=== PATIENT | female | born 1980 | race Native Hawaiian/Other Pacific Islander ===

== ENCOUNTER 2016-10-12 08:10 | Outpatient (CLI) | payer BC, OTHER | END 2016-10-12 09:10 | disposition home or self-care (01) | LOC: RESP 08:10 | DX: O24.311 Unspecified pre-existing diabetes mellitus in pregnancy, first trimester (principal) | CPT/HCPCS: 93005; 93306 ==

== ENCOUNTER 2018-11-30 08:31 | Outpatient (CLI) | payer OTHER ==
[2018-11-30 09:02] LABS: PLATELET COUNT 290 K/uL (152-353)
[2018-11-30 09:09] LABS: POTASSIUM 4.1 mmol/L (3.6-5.2)
== END 2018-11-30 21:48 | disposition home or self-care (01) ==
LOC: LABW 08:31
PROVIDERS: Internal Medicine
DX: I10 Essential (primary) hypertension (principal); E11.65 Type 2 diabetes mellitus with hyperglycemia
CPT/HCPCS: 36415; 80053; 80061; 82043; 82570; 83036; 85027

== ENCOUNTER 2019-02-28 08:12 | Outpatient (CLI) | payer OTHER ==
[2019-02-28 08:28] LABS: PLATELET COUNT 261 K/uL (152-353)
[2019-02-28 08:36] LABS: POTASSIUM 4.1 mmol/L (3.6-5.2)
== END 2019-02-28 21:50 | disposition home or self-care (01) ==
LOC: LABW 08:12
PROVIDERS: Internal Medicine
DX: I10 Essential (primary) hypertension (principal); E11.65 Type 2 diabetes mellitus with hyperglycemia
CPT/HCPCS: 36415; 80053; 80061; 82043; 82570; 83036; 85027

== ENCOUNTER 2019-08-01 09:25 | Outpatient (CLI) | payer OTHER ==
[2019-08-01 10:03] LABS: PLATELET COUNT 274 K/uL (152-353)
[2019-08-01 10:15] LABS: POTASSIUM 4.4 mmol/L (3.6-5.2)
== END 2019-08-01 22:22 | disposition home or self-care (01) ==
LOC: LABW 09:25
PROVIDERS: Dermatology
DX: R76.12 Nonspecific reaction to cell mediated immunity measurement of gamma interferon antigen response without active tuberculosis (principal); Z79.899 Other long term (current) drug therapy
CPT/HCPCS: 36415; 80053; 85027; 86480

== ENCOUNTER 2019-09-25 09:14 | Outpatient (CLI) | payer OTHER ==
[2019-09-25 09:54] LABS: PLATELET COUNT 255 K/uL (152-353)
[2019-09-25 09:58] LABS: POTASSIUM 4.3 mmol/L (3.6-5.2)
== END 2019-09-25 22:30 | disposition home or self-care (01) ==
LOC: LABW 09:14
PROVIDERS: Internal Medicine
DX: I10 Essential (primary) hypertension (principal); E11.65 Type 2 diabetes mellitus with hyperglycemia
CPT/HCPCS: 36415; 80053; 80061; 82043; 82570; 83036; 85027

== ENCOUNTER 2020-02-12 09:38 | Outpatient (CLI) | payer OTHER ==
[2020-02-12 10:26] LABS: PLATELET COUNT 262 K/uL (152-353)
== END 2020-02-12 19:11 | disposition home or self-care (01) ==
LOC: LABW 09:38
PROVIDERS: ATTEND Physician Assistant
DX: E11.9 Type 2 diabetes mellitus without complications (principal)
CPT/HCPCS: 36415; 80053; 80061; 82672; 83036; 84144; 84403; 84443; 85027

== ENCOUNTER 2020-05-02 08:55 | Outpatient (CLI) | payer OTHER ==
[2020-05-02 09:35] LABS: PLATELET COUNT 309 K/uL (152-353)
[2020-05-02 10:18] LABS: POTASSIUM 4.3 mmol/L (3.6-5.2)
== END 2020-05-02 21:48 | disposition home or self-care (01) ==
LOC: LABW 08:55
PROVIDERS: ATTEND Internal Medicine Endocrinology, Diabetes & Metabolism
DX: E11.65 Type 2 diabetes mellitus with hyperglycemia (principal)
CPT/HCPCS: 36415; 80053; 80061; 81000; 81025; 82306; 82607; 83036; 85027

== ENCOUNTER 2020-06-05 13:12 | Outpatient (CLI) | payer OTHER ==
[~2020-06-05] VITALS: Ht 175.3 cm; Wt 99.8 kg
== END 2020-06-05 22:14 | disposition home or self-care (01) ==
LOC: DIABINF 13:12
PROVIDERS: ATTEND Internal Medicine Endocrinology, Diabetes & Metabolism
DX: E11.65 Type 2 diabetes mellitus with hyperglycemia (principal); E11.40 Type 2 diabetes mellitus with diabetic neuropathy, unspecified; I10 Essential (primary) hypertension; Z71.6 Tobacco abuse counseling; F17.210 Nicotine dependence, cigarettes, uncomplicated; E55.9 Vitamin D deficiency, unspecified; R53.83 Other fatigue; F41.1 Generalized anxiety disorder; E78.49 Other hyperlipidemia; E28.2 Polycystic ovarian syndrome
CPT/HCPCS: 82948; 96365; 96366; 96521; 99204; J1718; J1815

== ENCOUNTER 2020-06-06 13:14 | Outpatient (CLI) | payer OTHER ==
[~2020-06-06] VITALS: Ht 175.2 cm; Wt 99.8 kg
== END 2020-06-06 19:27 | disposition home or self-care (01) ==
LOC: DIABINF 13:14
PROVIDERS: ATTEND Internal Medicine Endocrinology, Diabetes & Metabolism
DX: E11.65 Type 2 diabetes mellitus with hyperglycemia (principal); E11.40 Type 2 diabetes mellitus with diabetic neuropathy, unspecified; I10 Essential (primary) hypertension; Z71.6 Tobacco abuse counseling; F17.210 Nicotine dependence, cigarettes, uncomplicated; E55.9 Vitamin D deficiency, unspecified; R53.83 Other fatigue; F41.1 Generalized anxiety disorder; E78.49 Other hyperlipidemia; E28.2 Polycystic ovarian syndrome
CPT/HCPCS: 82948; 96365; 96366; 96521; 99214; J1718; J1815

== ENCOUNTER 2020-06-12 10:50 | Outpatient (CLI) | payer OTHER ==
[~2020-06-12] VITALS: Ht 175.3 cm; Wt 99.8 kg
== END 2020-06-12 19:34 | disposition home or self-care (01) ==
LOC: DIABINF 10:50
PROVIDERS: ATTEND Internal Medicine Endocrinology, Diabetes & Metabolism
DX: E11.65 Type 2 diabetes mellitus with hyperglycemia (principal); E11.40 Type 2 diabetes mellitus with diabetic neuropathy, unspecified; I10 Essential (primary) hypertension; Z71.6 Tobacco abuse counseling; E28.2 Polycystic ovarian syndrome; E55.9 Vitamin D deficiency, unspecified; R53.83 Other fatigue; E53.8 Deficiency of other specified B group vitamins; F41.1 Generalized anxiety disorder; E78.49 Other hyperlipidemia
CPT/HCPCS: 82948; 96365; 96366; 96521; 99214; J1718; J1815

== ENCOUNTER 2020-06-13 12:45 | Outpatient (CLI) | payer OTHER ==
[~2020-06-13] VITALS: Ht 175.3 cm; Wt 99.8 kg
== END 2020-06-13 21:49 | disposition home or self-care (01) ==
LOC: DIABINF 12:45
PROVIDERS: ATTEND Internal Medicine Endocrinology, Diabetes & Metabolism
DX: E11.65 Type 2 diabetes mellitus with hyperglycemia (principal); E11.40 Type 2 diabetes mellitus with diabetic neuropathy, unspecified; I10 Essential (primary) hypertension; Z71.6 Tobacco abuse counseling; E28.2 Polycystic ovarian syndrome; E55.9 Vitamin D deficiency, unspecified; E53.8 Deficiency of other specified B group vitamins; R53.83 Other fatigue; F41.1 Generalized anxiety disorder; E78.49 Other hyperlipidemia
CPT/HCPCS: 82948; 96365; 96366; 96521; 99214; J1718; J1815

== ENCOUNTER 2020-06-19 08:02 | Outpatient (CLI) | payer OTHER ==
[~2020-06-19] VITALS: Ht 175.3 cm; Wt 99.8 kg
== END 2020-06-19 20:28 | disposition home or self-care (01) ==
LOC: DIABINF 08:02
PROVIDERS: ATTEND Internal Medicine Endocrinology, Diabetes & Metabolism
DX: E11.65 Type 2 diabetes mellitus with hyperglycemia (principal); E11.40 Type 2 diabetes mellitus with diabetic neuropathy, unspecified; I10 Essential (primary) hypertension; Z71.6 Tobacco abuse counseling; E28.2 Polycystic ovarian syndrome; E55.9 Vitamin D deficiency, unspecified; R53.83 Other fatigue; F41.1 Generalized anxiety disorder; E78.49 Other hyperlipidemia
CPT/HCPCS: 82948; 96365; 96366; 96521; 99214; J1718; J1815

== ENCOUNTER 2020-06-20 12:15 | Outpatient (CLI) | payer OTHER ==
[~2020-06-20] VITALS: Ht 175.3 cm; Wt 99.8 kg
== END 2020-06-20 19:24 | disposition home or self-care (01) ==
LOC: DIABINF 12:15
PROVIDERS: ATTEND Internal Medicine Endocrinology, Diabetes & Metabolism
DX: E11.9 Type 2 diabetes mellitus without complications (principal); E28.2 Polycystic ovarian syndrome; L40.8 Other psoriasis; I10 Essential (primary) hypertension; Z72.0 Tobacco use; F41.8 Other specified anxiety disorders
CPT/HCPCS: 82948; 96365; 96366; 96521; 99214; J1718; J1815

== ENCOUNTER 2020-06-24 12:35 | Outpatient (CLI) | payer OTHER ==
[~2020-06-24] VITALS: Ht 175.3 cm; Wt 99.8 kg
== END 2020-06-24 19:17 | disposition home or self-care (01) ==
LOC: DIABINF 12:35
PROVIDERS: ATTEND Internal Medicine Endocrinology, Diabetes & Metabolism
DX: E11.65 Type 2 diabetes mellitus with hyperglycemia (principal); E11.40 Type 2 diabetes mellitus with diabetic neuropathy, unspecified; I10 Essential (primary) hypertension; Z71.6 Tobacco abuse counseling; E28.2 Polycystic ovarian syndrome; E55.9 Vitamin D deficiency, unspecified; R53.83 Other fatigue; F41.1 Generalized anxiety disorder; E78.49 Other hyperlipidemia
CPT/HCPCS: 82948; 96365; 96366; 96521; 99214; J1718; J1815

== ENCOUNTER 2020-07-02 08:56 | Outpatient (CLI) | payer OTHER | END 2020-07-02 21:30 | disposition home or self-care (01) | LOC: MAMMO 08:56 | PROVIDERS: ATTEND Obstetrics & Gynecology | DX: Z12.31 Encounter for screening mammogram for malignant neoplasm of breast (principal) ==

== ENCOUNTER 2020-07-04 12:52 | Outpatient (CLI) | payer OTHER ==
[~2020-07-04] VITALS: Ht 175.3 cm; Wt 99.8 kg
== END 2020-07-04 21:21 | disposition home or self-care (01) ==
LOC: DIABINF 12:52
PROVIDERS: ATTEND Internal Medicine Endocrinology, Diabetes & Metabolism
DX: E11.65 Type 2 diabetes mellitus with hyperglycemia (principal); E11.40 Type 2 diabetes mellitus with diabetic neuropathy, unspecified; I10 Essential (primary) hypertension; Z71.6 Tobacco abuse counseling; E28.2 Polycystic ovarian syndrome; E55.9 Vitamin D deficiency, unspecified; R53.83 Other fatigue; F41.1 Generalized anxiety disorder; E78.49 Other hyperlipidemia
CPT/HCPCS: 82948; 96365; 96366; 96521; 99214; J1718; J1815

== ENCOUNTER 2020-07-17 12:46 | Outpatient (CLI) | payer OTHER ==
[~2020-07-17] VITALS: Ht 175.3 cm; Wt 99.8 kg
== END 2020-07-17 20:35 | disposition home or self-care (01) ==
LOC: DIABINF 12:46
PROVIDERS: ATTEND Internal Medicine Endocrinology, Diabetes & Metabolism
DX: E11.65 Type 2 diabetes mellitus with hyperglycemia (principal); E11.40 Type 2 diabetes mellitus with diabetic neuropathy, unspecified; I10 Essential (primary) hypertension; Z71.6 Tobacco abuse counseling; E28.2 Polycystic ovarian syndrome; E55.9 Vitamin D deficiency, unspecified; R53.83 Other fatigue; F41.1 Generalized anxiety disorder; E78.49 Other hyperlipidemia
CPT/HCPCS: 82948; 96365; 96366; 96521; 99214; J1718; J1815

== ENCOUNTER 2020-07-24 12:34 | Outpatient (CLI) | payer OTHER ==
[~2020-07-24] VITALS: Ht 175.3 cm; Wt 99.8 kg
== END 2020-07-24 20:29 | disposition home or self-care (01) ==
LOC: DIABINF 12:34
PROVIDERS: ATTEND Internal Medicine Endocrinology, Diabetes & Metabolism
DX: E11.65 Type 2 diabetes mellitus with hyperglycemia (principal); E11.40 Type 2 diabetes mellitus with diabetic neuropathy, unspecified; I10 Essential (primary) hypertension; Z71.6 Tobacco abuse counseling; E28.2 Polycystic ovarian syndrome; E55.9 Vitamin D deficiency, unspecified; R53.83 Other fatigue; F41.1 Generalized anxiety disorder; E78.49 Other hyperlipidemia
CPT/HCPCS: 82948; 96365; 96366; 96521; J1815; J1817

== ENCOUNTER 2020-07-30 08:03 | Outpatient (CLI) | payer OTHER ==
[~2020-07-30] VITALS: Ht 175.3 cm; Wt 99.8 kg
== END 2020-07-30 20:38 | disposition home or self-care (01) ==
LOC: DIABINF 08:03
PROVIDERS: ATTEND Internal Medicine Endocrinology, Diabetes & Metabolism
DX: E11.65 Type 2 diabetes mellitus with hyperglycemia (principal); E11.40 Type 2 diabetes mellitus with diabetic neuropathy, unspecified; I10 Essential (primary) hypertension; Z71.6 Tobacco abuse counseling; E28.2 Polycystic ovarian syndrome; E55.9 Vitamin D deficiency, unspecified; R53.83 Other fatigue; F41.1 Generalized anxiety disorder; E78.49 Other hyperlipidemia
CPT/HCPCS: 82948; 96365; 96366; 96521; J1815; J1817

== ENCOUNTER 2020-08-07 12:44 | Outpatient (CLI) | payer OTHER | END 2020-08-07 22:28 | disposition home or self-care (01) | LOC: DIABINF 12:44 | PROVIDERS: ATTEND Internal Medicine Endocrinology, Diabetes & Metabolism | DX: E11.65 Type 2 diabetes mellitus with hyperglycemia (principal); E11.40 Type 2 diabetes mellitus with diabetic neuropathy, unspecified; I10 Essential (primary) hypertension; Z71.6 Tobacco abuse counseling; E28.2 Polycystic ovarian syndrome; E55.9 Vitamin D deficiency, unspecified; R53.83 Other fatigue; F41.1 Generalized anxiety disorder; E78.49 Other hyperlipidemia | CPT/HCPCS: 82948; 96365; 96366; 96521; J1817 ==

== ENCOUNTER 2020-08-14 12:31 | Outpatient (CLI) | payer OTHER ==
[~2020-08-14] VITALS: Ht 175.3 cm; Wt 99.8 kg
== END 2020-08-14 22:00 | disposition home or self-care (01) ==
LOC: DIABINF 12:31
PROVIDERS: ATTEND Internal Medicine Endocrinology, Diabetes & Metabolism
DX: E11.65 Type 2 diabetes mellitus with hyperglycemia (principal); E11.40 Type 2 diabetes mellitus with diabetic neuropathy, unspecified; I10 Essential (primary) hypertension; Z71.6 Tobacco abuse counseling; E28.2 Polycystic ovarian syndrome; E55.9 Vitamin D deficiency, unspecified; R53.83 Other fatigue; F41.1 Generalized anxiety disorder; E78.49 Other hyperlipidemia
CPT/HCPCS: 82948; 96365; 96366; 96521; J1815; J1817

== ENCOUNTER 2020-08-28 12:20 | Outpatient (CLI) | payer OTHER ==
[~2020-08-28] VITALS: Ht 175.3 cm; Wt 99.8 kg
== END 2020-08-28 22:45 | disposition home or self-care (01) ==
LOC: DIABINF 12:20
PROVIDERS: ATTEND Internal Medicine Endocrinology, Diabetes & Metabolism
DX: E11.65 Type 2 diabetes mellitus with hyperglycemia (principal); E11.40 Type 2 diabetes mellitus with diabetic neuropathy, unspecified; I10 Essential (primary) hypertension; Z71.6 Tobacco abuse counseling; E28.2 Polycystic ovarian syndrome; E55.9 Vitamin D deficiency, unspecified; R53.83 Other fatigue; F41.1 Generalized anxiety disorder; E78.49 Other hyperlipidemia
CPT/HCPCS: 82948; 96365; 96366; 96521; J1815; J1817

== ENCOUNTER 2021-01-08 08:26 | Outpatient (CLI) | payer OTHER | END 2021-01-08 18:52 | disposition home or self-care (01) | LOC: MAMMO 08:26 | PROVIDERS: ATTEND Obstetrics & Gynecology | DX: R92.2 Inconclusive mammogram (principal) | CPT/HCPCS: G0279 ==